=== PATIENT | female | born 1995 | race Caucasian/White ===

== ENCOUNTER 2022-02-22 11:32 | Inpatient (IN) | payer MEDICAID ==
[~2022-02-22] VITALS: Ht 170.2 cm; Wt 63.2 kg
[2022-02-22 11:33] VITALS: BP_SYST 117
[2022-02-22] MEDS ORDERED: IPRATROPIUM BROM 0.5 MG/2.5 ML VIAL.NEB (ATROVENT) INH ONE ×2 (12:30→12:32)
[2022-02-22] MEDS ORDERED: methylPREDNISolone SOD SUCC/PF 62.5 MG/ML VIAL IVP ONE (12:30)
[2022-02-22] MEDS ORDERED: ALBUTEROL SULFATE 0.083% 2.5 MG/3 ML VIAL.NEB INH ONE (12:30)
[2022-02-22] MEDS ORDERED: MAGNESIUM SULFATE 1 GM in NS 50 ML IV ONE (13:15)
[2022-02-22] MEDS ORDERED: NS 500 ML IV ONE (13:15)
[2022-02-22] MEDS ORDERED: MAGNESIUM SULFATE 1 GM/2 ML VIAL ONE (13:23)
[2022-02-22 13:34] LABS: ANION GAP 9 (5-15); CALCIUM 9.6 mg/dL (8.4-11.0); CHLORIDE 104 mmol/L (98-107); GLUCOSE 138 mg/dL (70-99); POTASSIUM 3.5 mmol/L (3.5-5.1); UREA NITROGEN, BLOOD 13 mg/dL (8-21)
[2022-02-22 13:43] LABS: ALANINE AMINOTRANSFERASE 20 U/L (12-78); ALBUMIN 4.1 g/dL (3.4-4.8); ASPARTATE AMINOTRANSFERASE 22 U/L (10-37); GFR AFRICAN AMERICAN 110 mL/min (>90); TOTAL BILIRUBIN 0.8 mg/dL (0.0-1.0)
[2022-02-22] MEDS ORDERED: MORPHINE 2 MG/ML INJ. SYRINGE IVP ONE (13:45)
[2022-02-22] MEDS ORDERED: ONDANSETRON HCL 4 MG/2 ML VIAL IVP ONE (13:45)
[2022-02-22] MEDS ORDERED: ALBMDI INH (15:34)
[2022-02-22] MEDS ORDERED: ACETAMINOPHEN 500 MG TABLET PO PRN (16:30)
[2022-02-22 16:50] LABS: HEMOGLOBIN 14.2 g/dL (12.0-16.0); MEAN CORPUSCULAR HEMOGLOBIN 31 pg (27-31); MEAN CORPUSCULAR HGB CONC 34 % (32-36); MEAN CORPUSCULAR VOLUME 93 fL (79.0-98.0); RED BLOOD CELL COUNT(AUTO) 4.54 MIL/uL (4.2-6.2); WHITE BLOOD COUNT (AUTO) 6.1 K/uL (4.8-10.8)
[2022-02-22 16:51] LABS: BASOPHILS % (AUTO) 0.5 % (0.0-2.0); EOSINOPHILS % (AUTO) 7.8 % (0.0-4.0); LYMPHOCYTES # (AUTO) 1.2 K/uL (1.0-5.5); LYMPHOCYTES % (AUTO) 20.6 % (20.5-51.5); MONOCYTES # (AUTO) 0.5 K/uL (0.0-1.0); MONOCYTES % (AUTO) 7.7 % (1.7-9.3); NEUTROPHILS # (AUTO) 3.8 K/uL (1.8-7.7); NEUTROPHILS % (AUTO) 63.4 % (40.0-70.0); PLATELET COUNT (AUTO) 377 K/uL (130-430); RED CELL DISTRIBUTION WIDTH 13.1 % (9.0-15.0)
[2022-02-22 16:52] LABS: EOSINOPHILS # (AUTO) 0.5 K/uL (0.0-0.4)
[2022-02-22] MEDS ORDERED: LORazepam 1 MG TABLET PO ONE (17:15)
[2022-02-22] MEDS: methylPREDNISolone SOD SUCC/PF 62.5 MG/ML VIAL IVP SCH (18:54)
[2022-02-22] MEDS ORDERED: IPRATROPIUM/ALBUTEROL SULFATE 3 ML AMPUL.NEB (DUONEB) INH SCH (19:00)
[2022-02-22] MEDS: IPRATROPIUM/ALBUTEROL SULFATE 3 ML AMPUL.NEB (DUONEB) INH SCH (20:45)
[2022-02-22] MEDS ORDERED: methylPREDNISolone SOD SUCC/PF 62.5 MG/ML VIAL IVP SCH (22:00)
[2022-02-22 22:36] VITALS: BP_SYST 117
[2022-02-23 00:20] VITALS: BP_SYST 120
[2022-02-23] MEDS: methylPREDNISolone SOD SUCC/PF 62.5 MG/ML VIAL IVP SCH ×5 (00:24→23:57)
[2022-02-23] MEDS: IPRATROPIUM/ALBUTEROL SULFATE 3 ML AMPUL.NEB (DUONEB) INH SCH ×6 (00:26→20:21)
[2022-02-23 08:00] VITALS: BP_SYST 103
[2022-02-23] MEDS: cefTRIAXone 1 GM in D5W 50 ML IV SCH (10:35)
[2022-02-23] MEDS: LORazepam 1 MG TABLET PO PRN (11:45)
[2022-02-23 12:00] VITALS: BP_SYST 114
[2022-02-23 20:00] VITALS: BP_SYST 108
[2022-02-24 00:02] VITALS: BP_SYST 110
[2022-02-24] MEDS: IPRATROPIUM/ALBUTEROL SULFATE 3 ML AMPUL.NEB (DUONEB) INH SCH ×7 (01:23→23:00)
[2022-02-24] MEDS: LORazepam 1 MG TABLET PO PRN ×2 (02:23→19:59)
[2022-02-24] MEDS: methylPREDNISolone SOD SUCC/PF 62.5 MG/ML VIAL IVP SCH ×4 (05:39→23:49)
[2022-02-24 08:00] VITALS: BP_SYST 116
[2022-02-24] MEDS: cefTRIAXone 1 GM in D5W 50 ML IV SCH (08:40)
[2022-02-24 12:00] VITALS: BP_SYST 114
[2022-02-24] MEDS: IPRATROPIUM/ALBUTEROL SULFATE 3 ML AMPUL.NEB (DUONEB) INH PRN (13:34)
[2022-02-24] MEDS: ACETYLCYSTEINE 20% 4 ML VIAL (RT) INH SCH ×2 (15:00→20:31)
[2022-02-24 19:59] VITALS: BP_SYST 127
[2022-02-24 20:00] VITALS: BP_SYST 127
[2022-02-25] MEDS: IPRATROPIUM/ALBUTEROL SULFATE 3 ML AMPUL.NEB (DUONEB) INH SCH ×6 (03:00→23:00)
[2022-02-25] MEDS: IPRATROPIUM/ALBUTEROL SULFATE 3 ML AMPUL.NEB (DUONEB) INH PRN (04:31)
[2022-02-25] MEDS: methylPREDNISolone SOD SUCC/PF 62.5 MG/ML VIAL IVP SCH ×3 (05:16→23:06)
[2022-02-25] MEDS: ACETYLCYSTEINE 20% 4 ML VIAL (RT) INH SCH ×3 (07:00→21:00)
[2022-02-25 09:00] VITALS: BP_SYST 126
[2022-02-25] MEDS: ONDANSETRON HCL 4 MG/2 ML VIAL IVP PRN ×2 (09:03→21:30)
[2022-02-25] MEDS: cefTRIAXone 1 GM in D5W 50 ML IV SCH (09:04)
[2022-02-25] MEDS: LORazepam 1 MG TABLET PO PRN ×2 (09:04→21:30)
[2022-02-25 09:40] VITALS: BP_SYST 126
[2022-02-25 16:00] VITALS: BP_SYST 120
[2022-02-25 19:35] VITALS: BP_SYST 115
[2022-02-26 00:11] VITALS: BP_SYST 123
[2022-02-26] MEDS: LORazepam 1 MG TABLET PO PRN ×3 (02:19→22:18)
[2022-02-26] MEDS: IPRATROPIUM/ALBUTEROL SULFATE 3 ML AMPUL.NEB (DUONEB) INH SCH ×5 (03:00→23:41)
[2022-02-26] MEDS: methylPREDNISolone SOD SUCC/PF 62.5 MG/ML VIAL IVP SCH ×3 (06:11→22:18)
[2022-02-26] MEDS: ACETYLCYSTEINE 20% 4 ML VIAL (RT) INH SCH ×3 (07:00→23:41)
[2022-02-26 08:32] VITALS: BP_SYST 118
[2022-02-26] MEDS: cefTRIAXone 1 GM in D5W 50 ML IV SCH (10:25)
[2022-02-26] MEDS: IBUPROFEN 400 MG TABLET PO PRN (13:21)
[2022-02-26 16:00] VITALS: BP_SYST 110
[2022-02-26] MEDS ORDERED: SIMETHICONE 80 MG TAB.CHEW PO PRN (18:30)
[2022-02-26 20:08] VITALS: BP_SYST 132
[2022-02-27 00:35] VITALS: BP_SYST 120
[2022-02-27] MEDS: ONDANSETRON HCL 4 MG/2 ML VIAL IVP PRN ×2 (00:44→16:31)
[2022-02-27] MEDS: IPRATROPIUM/ALBUTEROL SULFATE 3 ML AMPUL.NEB (DUONEB) INH SCH ×6 (06:04→23:00)
[2022-02-27] MEDS: methylPREDNISolone SOD SUCC/PF 62.5 MG/ML VIAL IVP SCH ×3 (06:21→21:34)
[2022-02-27] MEDS: ACETYLCYSTEINE 20% 4 ML VIAL (RT) INH SCH ×3 (07:00→19:56)
[2022-02-27 08:00] VITALS: BP_SYST 154
[2022-02-27] MEDS: cefTRIAXone 1 GM in D5W 50 ML IV SCH (09:03)
[2022-02-27 11:33] VITALS: BP_SYST 129
[2022-02-27] MEDS: IBUPROFEN 400 MG TABLET PO PRN (18:53)
[2022-02-27] MEDS: LORazepam 1 MG TABLET PO PRN (21:34)
[2022-02-28] VITALS (7 sets, daily range): BP systolic 120–131
[2022-02-28] MEDS: IPRATROPIUM/ALBUTEROL SULFATE 3 ML AMPUL.NEB (DUONEB) INH SCH ×6 (03:00→23:00)
[2022-02-28] MEDS: methylPREDNISolone SOD SUCC/PF 62.5 MG/ML VIAL IVP SCH ×3 (06:55→21:05)
[2022-02-28] MEDS: ACETYLCYSTEINE 20% 4 ML VIAL (RT) INH SCH ×3 (07:00→21:00)
[2022-02-28] MEDS: cefTRIAXone 1 GM in D5W 50 ML IV SCH (09:00)
[2022-02-28] MEDS: ONDANSETRON HCL 4 MG/2 ML VIAL IVP PRN (14:30)
[2022-02-28] MEDS: LORazepam 1 MG TABLET PO PRN (18:08)
[2022-03-01] MEDS: IPRATROPIUM/ALBUTEROL SULFATE 3 ML AMPUL.NEB (DUONEB) INH SCH ×2 (03:00→07:00)
[2022-03-01 05:05] VITALS: BP_SYST 129
[2022-03-01] MEDS: methylPREDNISolone SOD SUCC/PF 62.5 MG/ML VIAL IVP SCH (06:00)
[2022-03-01] MEDS: ACETYLCYSTEINE 20% 4 ML VIAL (RT) INH SCH (07:00)
== END 2022-03-01 17:29 | disposition left against medical advice (07) | DRG 133 ==
LOC: SED 11:32 → STU 16:16 → SMU 02-26 17:39
PROVIDERS: ADMIT Family Medicine; ATTEND Family Medicine
DX: J96.00 Acute respiratory failure, unspecified whether with hypoxia or hypercapnia (principal); J45.901 Unspecified asthma with (acute) exacerbation; R65.10 Systemic inflammatory response syndrome (SIRS) of non-infectious origin without acute organ dysfunction; F11.20 Opioid dependence, uncomplicated; F41.9 Anxiety disorder, unspecified; Z20.822 Contact with and (suspected) exposure to COVID-19; F17.210 Nicotine dependence, cigarettes, uncomplicated
CPT/HCPCS: 36415; 36600; 71045; 80053; 82803-TC; 83880; 84484; 84702; 85025; 93005; 94640; 94760; 96374; 96375; 99285; G0378; J0696; J2270; J2405; J2930; J3475; J7060; J7608